=== PATIENT | male | born 2000 | race Caucasian/White ===

== ENCOUNTER 2018-02-02 19:29 | Emergency (ER) | payer OTHER ==
[~2018-02-02] VITALS: Ht 177.8 cm; Wt 63.5 kg
[~2018-02-02 19:29] MED LIST: AMOXICILLIN875 MG PO; RITALIN10 MG; ZOFRAN ODT4 MG PO
[2018-02-02 20:08] LABS: HEMATOCRIT 41.8 % (42.0-52.0); HEMOGLOBIN 14.1 gm/dL (14.0-18.0); MCH 30.9 pg (26.0-34.0); MCHC 33.8 g/dL (28.0-37.0); MCV 91.4 fL (80.0-100.0); MPV 9.7 fl. (7.2-11.1); NUCLEATED RBCS 0 /100WBC; PLATELET COUNT* 186 thou/uL (150-400); RBC 4.57 mil/uL (4.50-6.00); RDW-CV 12.8 % (10.5-14.5); WBC 12.9 thou/uL (4.0-11.0)
[2018-02-02 20:12] LABS: CALCIUM 8.5 mg/dL (8.5-10.1); POTASSIUM 3.4 mmol/L (3.5-5.1)
[2018-02-02 20:14] LABS: URINE BILIRUBIN NEGATIVE (Negative); URINE BLOOD NEGATIVE (Negative); URINE CLARITY CLEAR; URINE COLOR YELLOW; URINE GLUCOSE-RANDOM NEGATIVE (Negative); URINE KETONES TRACE (Negative); URINE LEUKOCYTES-REFLEX NEGATIVE (Negative); URINE NITRITE-REFLEX NEGATIVE (Negative); URINE PROTEIN TRACE (Negative); URINE SPECIFIC GRAVITY 1.015 (1.005-1.030)
[2018-02-02 20:17] LABS: ALBUMIN 3.7 g/dL (3.4-5.0); TOTAL BILIRUBIN 0.4 mg/dL (<0.1-1.0); TOTAL PROTEIN 7.6 g/dL (6.4-8.2)
[2018-02-02 20:42] LABS: ABSOLUTE LYMPHOCYTES 0.9 thou/uL (0.8-5.3)
[2018-02-02 20:43] LABS: PLATELET ESTIMATE ADEQUATE
[2018-02-02] MEDS ORDERED: ZOFRAN4 MG PO (23:04)
[2018-02-02 23:39] VITALS: BP 109/38
== END 2018-02-02 23:40 | disposition home or self-care (01) ==
LOC: M.ERS 19:29
PROVIDERS: Nurse Practitioner Family
DX: B34.9 Viral infection, unspecified (principal); R11.2 Nausea with vomiting, unspecified; F90.9 Attention-deficit hyperactivity disorder, unspecified type; Z77.22 Contact with and (suspected) exposure to environmental tobacco smoke (acute) (chronic)

== ENCOUNTER 2018-02-04 17:08 | Inpatient (IN) | payer OTHER ==
[~2018-02-04] VITALS: Ht 177.8 cm; Wt 63.5 kg
[~2018-02-04 17:08] MED LIST changes: +ZOFRAN4 MG PO
[2018-02-04 17:15] VITALS: BP 111/57
[2018-02-04 17:40] LABS: ABSOLUTE LYMPHOCYTES 1.3 thou/uL (0.8-5.3); ABSOLUTE MONOCYTES 0.9 thou/uL (0.0-1.2); ABSOLUTE NEUTROPHILS 7.3 thou/uL (1.6-8.1); BASOPHILS 0.3 %; EOSINOPHILS 0.1 %; HEMATOCRIT 41.2 % (42.0-52.0); LYMPHOCYTES 13.2 %; MCH 30.9 pg (26.0-34.0); MCHC 33.9 g/dL (28.0-37.0); MCV 91.1 fL (80.0-100.0); MONOCYTES 9.6 %; MPV 9.3 fl. (7.2-11.1); NUCLEATED RBCS 0 /100WBC; PLATELET COUNT* 184 thou/uL (150-400); POLYS 76.8 %; RBC 4.53 mil/uL (4.50-6.00); WBC 9.5 thou/uL (4.0-11.0)
[2018-02-04 17:50] LABS: CALCIUM 8.3 mg/dL (8.5-10.1); CREATININE 0.8 mg/dL (0.6-1.3); POTASSIUM 3.3 mmol/L (3.5-5.1)
[2018-02-04 17:55] LABS: ALBUMIN 3.4 g/dL (3.4-5.0); TOTAL BILIRUBIN 0.4 mg/dL (<0.1-1.0); TOTAL PROTEIN 7.3 g/dL (6.4-8.2)
[2018-02-04 18:52] LABS: URINE BILIRUBIN NEGATIVE (Negative); URINE BLOOD NEGATIVE (Negative); URINE CLARITY CLEAR; URINE COLOR YELLOW; URINE GLUCOSE-RANDOM NEGATIVE (Negative); URINE KETONES 1+ (Negative); URINE LEUKOCYTES-REFLEX NEGATIVE (Negative); URINE NITRITE-REFLEX NEGATIVE (Negative); URINE PROTEIN NEGATIVE (Negative); URINE SPECIFIC GRAVITY <= 1.005 (1.005-1.030); URINE UROBILINOGEN 0.2 E.U./dl (0.2-1.0)
[2018-02-04 19:17] LABS: AMP/METHAMP Negative (Negative); BARBITURATES Negative (Negative); BENZODIAZEPINES Negative (Negative); COCAINE Negative (Negative); METHADONE Negative (Negative); OPIATES Negative (Negative); PCP Negative (Negative); THC POSITIVE (Negative)
[2018-02-04 20:00] VITALS: BP 116/64
[2018-02-04 20:30] VITALS: BP 134/48
[2018-02-05 08:00] VITALS: BP 100/36
[2018-02-05 15:50] VITALS: BP 115/57
[2018-02-05 23:20] VITALS: BP 123/56
[2018-02-06 08:00] VITALS: BP 112/59
--- NOTE | 2018-02-06 08:13 | CON ---
[address] [address] CONSULTATION Name: SARAI COMER JR Room: [address] IN M.R.#: [id number] Admission: 02/04/18 Attend Phys: Conner Constantino MD Discharge: Date of : 89 Report #: [id number] THIS REPORT FOR: //name// CC: Conner Constantino [facility] physician/PCP DATE OF SERVICE: 02/05/2018 INFECTIOUS DISEASE CONSULTATION ATTENDING PHYSICIAN: Dr. Espinal. REASON FOR EVALUATION: Febrile illness with positive blood culture. HISTORY OF PRESENT ILLNESS: Chart reviewed, patient examined. This is a 17-year-old, without significant medical history, who had a fairly abrupt onset of shaking chills and it sounds like may be true rigors on 01/31/2018, was accompanied by some nausea, emesis, diarrhea and right upper quadrant abdominal pain. Denies any illness among family members. He had no recent travel. He does work outside concrete. He has been bitten by mosquitoes. Denies any particular dietary indiscretions. No unusual animal exposures. On evaluation, he was found to have temperature of 103 degrees Fahrenheit. Currently, he does complain more about sinus congestion. At the time of admission, he had blood cultures collected that are now 1 out of 2 with Gram-positive cocci, the other is showing no growth. Empirically, he is started on vancomycin. He is not encephalopathic. He denies significant pulmonary or gastrointestinal related complaints. ALLERGIES: None. CURRENT MEDICATIONS: Include multivitamin, ascorbic acid, guaifenesin, vancomycin, ibuprofen, acetaminophen, ondansetron. PAST MEDICAL HISTORY: ADHD. SOCIAL HISTORY: Former smoker, does utilize marijuana. No ethanol. FAMILY HISTORY: Noncontributory. REVIEW OF SYSTEMS: As above. PHYSICAL EXAMINATION: GENERAL: He is in mild distress. He is not overtly toxic appearing. VITAL SIGNS: Temperature 98.7, he did have a T-max of 104.2 on the evening of 02/02/2018, pulse 83, respirations 18, blood pressure 100/36. SKIN: Warm, dry, [place] [address] CONSULTATION Name: SARAI COMER JR Room: [address]#: [id number] Admission: 02/04/18 Attend Phys: Conner Constantino MD Discharge: Date of : 89 Report #: [id number] HEENT: No significant sinus tenderness. NECK: Supple. LUNGS: Generally clear. HEART: Regular. ABDOMEN: Soft, nontender, nondistended. EXTREMITIES: No cyanosis. GENITOURINARY: Deferred. RECTAL: Deferred. LABORATORY DATA: Blood cultures described above. Rapid Strep A screen was negative. Urinalysis unremarkable. Lactic acid initially was 3.4, now most recent 1.4. Electrolytes: Sodium 136, potassium 3.3, chloride 100, bicarbonate is 27, BUN and creatinine 7 and 0.8, anion gap of 9, glucose of 94. LFTs are unremarkable. Albumin 3.4, total protein of 7.3, estimated GFR 125. Chest x-ray showed no acute cardiopulmonary process. CBC: White count of 9.5, H and H 14.0 and 41.2, platelets of 184. CT abdomen and pelvis, diffuse fluid throughout the colon suggestive of diarrhea, small amount of formed stool in the distal colon. There is no evidence of wall thickening to suggest colitis. Monospot was positive on 02/02/2018. ASSESSMENT: Febrile illness with now positive blood cultures, certainly 1 out of 2 open the possibility of false positive or contaminant. I think with this we will continue empiric therapy given the severity of the high fevers, may be something such as Pneumococcus, which tends to be very fastidious and sometimes difficult to grow. Overall, I think there is some degree of improvement. There is defervescence. We will await those culture results. I am not initially suspicious of any immunocompromising situation, although interestingly, his positive Monospot has, initial absolute lymphocyte count was 900. There is no evidence of atypical lymphocytes. <ELECTRONICALLY SIGNED> By: Constantin Powers MD 02/06/18 0813 1518 [id number] Powers MD /nt
[2018-02-06] MEDS ORDERED: CEFDINIR300 MG PO (14:51)
[2018-02-06 16:05] VITALS: BP 112/59
== END 2018-02-06 16:24 | disposition home or self-care (01) | DRG 872 ==
LOC: M.ERS 17:08 → M.3W 18:21 → M.TBA-ER 18:21 → M.3W 20:15
PROVIDERS: Physician Assistant; ADMIT Internal Medicine
DX: A41.9 Sepsis, unspecified organism (principal); J02.8 Acute pharyngitis due to other specified organisms; B34.9 Viral infection, unspecified; J32.9 Chronic sinusitis, unspecified; F90.9 Attention-deficit hyperactivity disorder, unspecified type; R19.7 Diarrhea, unspecified; F12.90 Cannabis use, unspecified, uncomplicated; Z87.891 Personal history of nicotine dependence

== ENCOUNTER 2020-04-19 12:53 | Emergency (ER) | payer OTHER ==
[~2020-04-19] VITALS: Ht 170.2 cm; Wt 70.3 kg
[~2020-04-19 12:53] MED LIST changes: +CEFDINIR300 MG PO
[2020-04-19 14:59] LABS: ABSOLUTE BASOPHILS 0.1 thou/uL (0.0-0.2); ABSOLUTE EOSINOPHILS 0.4 thou/uL (0.0-0.7); ABSOLUTE LYMPHOCYTES 1.7 thou/uL (0.8-5.3); ABSOLUTE MONOCYTES 0.7 thou/uL (0.0-1.2); ABSOLUTE NEUTROPHILS 2.5 thou/uL (1.6-8.1); BASOPHILS 2.4 %; EOSINOPHILS 7.4 %; HEMATOCRIT 43.6 % (42.0-52.0); HEMOGLOBIN 15.4 gm/dL (14.0-18.0); MCH 31.5 pg (26.0-34.0); MCHC 35.4 g/dL (28.0-37.0); MCV 89.1 fL (80.0-100.0); MONOCYTES 12.9 %; MPV 8.3 fl. (7.2-11.1); NUCLEATED RBCS 0 /100WBC; PLATELET COUNT* 266 thou/uL (150-400); POLYS 46.3 %; RBC 4.89 mil/uL (4.50-6.00); RDW-CV 12.6 % (10.5-14.5); WBC 5.3 thou/uL (4.0-11.0)
[2020-04-19 15:04] LABS: CALCIUM 8.4 mg/dL (8.5-10.1); CREATININE 1.1 mg/dL (0.6-1.3); POTASSIUM 3.5 mmol/L (3.5-5.1)
[2020-04-19 15:05] LABS: APTT 29.1 Seconds (25.0-31.3); PROTIME 10.8 Seconds (9.20-11.50)
[2020-04-19 15:09] LABS: ALBUMIN 3.7 g/dL (3.4-5.0); TOTAL BILIRUBIN 0.6 mg/dL (<0.1-1.0); TOTAL PROTEIN 7.1 g/dL (6.4-8.2)
[2020-04-19 17:20] VITALS: BP 99/60
--- NOTE | 2020-04-20 13:02 | EKG ---
[place] [address] ELECTROCARDIOGRAM REPORT Name: SARAI COMER JR Room: [facility]#: [id number] Admission: 04/19/20 Attend Phys: Discharge: 04/19/20 Date of : 89 Date of Service: 04/19/20 1504 Report #: [id number] THIS REPORT FOR: //name// [facility] ED Test Date: 2020-04-19 Test Time: 15:04:34 Pat Name: SARAI UMAÑAA Department: Room: Gender: [employer]: : 2000 Requested By: Anayeli Ferguson Order Number: [id number] MD: Mustapha Sommers Measurements Intervals Jena Rate: 48 P: 57 MS: 189 QRS: 84 QRSD: 114 T: 61 QT: 433 QTc: 387 Interpretive Statements Slow sinus arrhythmia Early repolarization Baseline wander in lead(s) II No previous ECG available for comparison Electronically Signed On 04-20-2020 13:02:35 CDT by Mustapha Sommers [email or web address] <ELECTRONICALLY SIGNED> By: Mustapha Sommers MD, [facility] 04/20/20 1302 1504 1504 Mustapha Sommers MD, [facility] /EPI
== END 2020-04-19 17:20 | disposition short-term general hospital (02) ==
LOC: M.ERS 12:53
PROVIDERS: Nurse Practitioner Family
DX: S16.1XXA Strain of muscle, fascia and tendon at neck level, initial encounter (principal); M54.6 Pain in thoracic spine; J98.2 Interstitial emphysema; F90.9 Attention-deficit hyperactivity disorder, unspecified type; V49.88XA Car occupant (driver) (passenger) injured in other specified transport accidents, initial encounter; Y93.89 Activity, other specified; Y92.413 State road as the place of occurrence of the external cause; Y99.9 Unspecified external cause status

== ENCOUNTER 2020-12-27 15:52 | Emergency (ER) | payer OTHER ==
[~2020-12-27] VITALS: Ht 172.7 cm; Wt 74.8 kg
[2020-12-27 17:58] VITALS: BP 133/79
== END 2020-12-27 17:59 | disposition home or self-care (01) ==
LOC: M.ERS 15:52
DX: S60.221A Contusion of right hand, initial encounter (principal); F90.9 Attention-deficit hyperactivity disorder, unspecified type; X58.XXXA Exposure to other specified factors, initial encounter; Y93.89 Activity, other specified; Y92.89 Other specified places as the place of occurrence of the external cause; Y99.8 Other external cause status

== ENCOUNTER 2021-01-17 11:19 | Emergency (ER) | payer OTHER ==
[~2021-01-17] VITALS: Ht 172.7 cm; Wt 74.8 kg
[2021-01-17] MEDS ORDERED: FLEXERIL PO (13:42)
[2021-01-17] MEDS ORDERED: IBUPROFEN 800800 M1 PO (13:42)
== END 2021-01-17 13:53 | disposition home or self-care (01) ==
LOC: M.ERS 11:19
DX: S63.8X1A Sprain of other part of right wrist and hand, initial encounter (principal); F90.9 Attention-deficit hyperactivity disorder, unspecified type; V09.9XXA Pedestrian injured in unspecified transport accident, initial encounter; Y93.89 Activity, other specified; Y92.89 Other specified places as the place of occurrence of the external cause; Y99.9 Unspecified external cause status